=== PATIENT | female | born 1970 ===

== ENCOUNTER 2025-03-11 06:23 | Day surgery (SDC) | payer BC, SELFPAY ==
[2025-03-06 11:35] LABS: Hematocrit 41.5 % (37.0-47.0); Hemoglobin 14.5 g/dL (12.0-16.0); Mean Corp Hgb Conc. 34.9 g/dL (33.0-37.0); Mean Corpuscular Volume 89.1 fL (81.0-99.0); Platelet Count 223 10^3/uL (130-400); Red Cell Dist. Width 11.9 % (11.5-14.5)
[2025-03-06 12:06] LABS: Blood Urea Nitrogen 16 mg/dl (7-17); Calcium 9.3 mg/dl (8.4-10.2); Carbon Dioxide 30 mmol/L (22-30); Chloride 103 mmol/L (98-107); Glucose 86 mg/dl (70-99); Potassium 4.3 mmol/L (3.5-5.1); Sodium 138 mmol/L (135-145); eGFR > 60.00
[2025-03-06 13:57] VITALS: BMI 20.7
[2025-03-11 08:15] VITALS: BP 108/67
[2025-03-11] MEDS: TYLENOL 1000 MG PO (08:30)
[2025-03-11] MEDS: CELEBREX 200 MG PO (08:30)
[2025-03-11] MEDS: NORMOSOL-R/PLASMALYTE-A 1000 IV (08:34)
[2025-03-11 08:45] VITALS: BMI 20.7
[2025-03-11 11:45] VITALS: BP 98/79
[2025-03-11 12:00] VITALS: BP 101/65
[2025-03-11 12:15] VITALS: BP 100/78
[2025-03-11 12:30] VITALS: BP 106/76
--- NOTE | 2025-03-13 19:29 | OR.RPT ---
Operative Report
Operative Report
OPERATIVE REPORT
Patient: Ellen Sultana

Date of Surgery: 03/11/2025
Surgeon: Quique Richard DPM
Assistants: Quique Lucas DPM
Preoperative Diagnosis:
Left hallux limitus, bony prominence
Left foot soft-tissue mass consistent with ganglion cyst
Postoperative Diagnosis:
Same
Procedures Performed:
Left cheilectomy � CPT 24256
Left foot soft-tissue mass excision (ganglion cyst ~2.0 cm) � CPT 48840
Anesthesia: MAC with 20ccs of 0.5% bupivacaine plain
Hemostasis: Ankle tourniquet which remained inflated for 250mmHg for the entirety of the procedure
Estimated Blood Loss: Minimal
Specimens:
Left foot soft-tissue mass (ganglion cyst ~2.0 cm) sent to pathology
Complications: None
INDICATIONS FOR SURGERY
The patient is a 54-year-old who presented with progressive left first metatarsophalangeal joint prominence and pain, unresponsive to conservative measures including NSAIDs, footwear modifications, and activity reduction. Additionally, the patient
had a symptomatic, palpable soft-tissue mass on the dorsal aspect of the left foot consistent with a ganglion cyst, also unresponsive to conservative treatment. After review of risks, benefits, alternatives, and expected outcomes, the patient
elected to proceed with surgical intervention.
PROCEDURE #1: LEFT GANGLION CYST EXCISION
The patient was brought to the operating room and placed supine on the operating table. After appropriate anesthesia was obtained, the left foot was prepped and draped in the usual sterile fashion. A well-padded tourniquet was applied to the left
ankle and inflated after exsanguination.
A dorsal linear incision was made over the first metatarsophalangeal joint. Blunt dissection was carried carefully through the subcutaneous layers, protecting neurovascular structures. Attention was then directed to the dorsal soft-tissue mass
located proximal to the first MTP joint.
A well-defined ganglion cyst, approximately 2.0 cm in greatest length, was identified arising from the underlying joint capsule. The cyst was circumferentially mobilized, and its stalk was traced back to its origin off the extensor tendon. The mass
was excised in its entirety, including its pedicle, to reduce recurrence.
The specimen was passed off the field and sent to pathology for evaluation. The wound bed was inspected and irrigated thoroughly. No remaining cystic tissue or satellite lesions were observed.
PROCEDURE #2: LEFT FOOT CHEILECTOMY
The joint capsule was incised in a longitudinal fashion and reflected to expose the first metatarsal head.
Significant osteophytes were appreciated on the dorsal and medial aspect of the 1st metatarsal head. There was a mild bunion deformity, but the joint surface cartilage appeared entirely intact. Using a combination of rongeur and sagittal saw, the
prominent aspect of the medial and dorsal aspect of the 1st metatarsal head was meticulously resected
Remaining loose fragments were removed, and the joint surfaces were irrigated with copious sterile saline. Capsular tissues were closed with 2-0 Vicryl. Subcutaneous tissues were approximated using 3-0 Vicryl. Skin was closed using 4-0 Monocryl in a
buried subcuticular fashion.
Sterile dressings were applied, and the tourniquet was deflated with immediate return of perfusion noted.
POSTOPERATIVE PLAN
The patient will remain weightbearing as tolerated in a postoperative shoe. Dressings are to remain clean, dry, and intact. Pain will be managed with prescribed medications. The patient will follow up in clinic in 10-14 days for wound evaluation and
pathology review.
== END 2025-03-11 12:56 | disposition home or self-care (01) ==
LOC: SDS 06:23
PROVIDERS: ATTENDING PHYSICIAN Student in an Organized Health Care Education/Training Program; REFERRING PHYSICIAN Internal Medicine
DX: M20.12 Hallux valgus (acquired), left foot (principal); M20.5X2 Other deformities of toe(s) (acquired), left foot; M67.472 Ganglion, left ankle and foot
CPT/HCPCS: 28289; 28104; 28090; 36415; 80048; 85027; 88304; 93005